=== PATIENT | male | born 1965 | race Two or more races ===

== ENCOUNTER 2020-09-26 21:17 | Emergency (ER) | payer OTHER ==
--- NOTE | 2020-09-26 21:49 | NUR ---
CALLED FOR TRIAGE NIO ANSWER
--- NOTE | 2020-09-26 22:08 | NUR ---
CALLED FOR TRIAGE NO ANSWER
--- NOTE | 2020-09-26 22:44 | NUR ---
CALLED PT TO TRIAGE ROOM. NO ANSWER
--- NOTE | 2020-09-26 23:34 | NUR ---
CALLED FOR TRIAGE, NO ANSWER
== END 2020-09-26 23:35 | disposition left against medical advice (07) ==
LOC: ER 21:18
DX: Z02.89 Encounter for other administrative examinations (principal); Z53.21 Procedure and treatment not carried out due to patient leaving prior to being seen by health care provider